=== PATIENT | female | born 1990 | race Caucasian/White ===

== ENCOUNTER 2023-05-15 01:12 | Emergency (ER) | payer SELFPAY ==
[2023-05-15] MEDS ORDERED: Ondansetron ODT 4 MG TAB ONE (01:27)
[2023-05-15] MEDS ORDERED: Lidocaine 1% w/Epinephrine 1:100K 20 ML VIAL ONE (01:27)
[2023-05-15] MEDS ORDERED: Bacitracin 1 PK ONE (02:14)
[2023-05-15] MEDS ORDERED: Boostrix 0.5 ML (Tdap) VIAL (>/=7 yrs of age) ONE (02:16)
== END 2023-05-15 01:23 | disposition home or self-care (01) ==
LOC: NAV ERS 01:12
DX: S61.512A Laceration without foreign body of left wrist, initial encounter (principal); F17.290 Nicotine dependence, other tobacco product, uncomplicated; Z23 Encounter for immunization; W26.9XXA Contact with unspecified sharp object(s), initial encounter
CPT/HCPCS: 12004; 90471; 90715; Q0162